=== PATIENT | female | born 1995 | race Two or more races ===

== ENCOUNTER 2018-08-10 09:19 | Emergency (ER) | payer BC ==
[~2018-08-10] VITALS: Ht 152.4 cm; Wt 47.6 kg
[2018-08-10 09:29] VITALS: BP 115/76
--- NOTE | 2018-08-10 09:31 | NUR ---
ED Nurse Note:pt. came with c/o bilateral pelvic pain after she had IUD placed before [place]
--- NOTE | 2018-08-10 10:21 | Emergency Room Report ---
History of Present Illness General Chief Complaint: Pain Source: Patient Present Illness HPI Patient presents with complaints of pelvic discomfort reports that about 1 month ago she had intrauterine device placed this was put in while she was having her menstrual cycle Currently she feels that she is starting her menstrual cycle patient had some different sensation such as body aches and low-grade fevers off and on for the past 1 month Off and on lower abdominal cramping Patient initially thought that she might have the flu as she had just recently come back from [place] and had traveled Denies any chest pain denies any vomiting or diarrhea Patient reports that she was concerned about sepsis otherwise denies any dysuria denies any vaginal discharge Cramping also is fairly suprapubic and lower abdomen midline Allergies: Uncoded Allergies: NUTS (Allergy, Unknown, 08/10/18) Patient History Past Medical History: see triage record Pertinent Family History: none Last Menstrual Period: 08/08/18 Reviewed Nursing Documentation: PMH: Agreed; PSxH: Agreed Nursing Documentation-PMH Past Medical History: No Stated History Review of Systems All Other Systems: negative except mentioned in HPI Physical Exam Vital Signs Date Time Temp Pulse Resp B/P (MAP) Pulse Ox O2 Delivery O2 Flow Rate FiO2 08/10/18 09:21 98.8 94 18 115/76 96 Room Air Sp02 EP Interpretation: reviewed, normal General Appearance: well appearing, no apparent distress Head: normocephalic, atraumatic Eyes: bilateral eye PERRL, bilateral eye EOMI ENT: hearing grossly normal, normal pharynx, TMs + canals normal, uvula midline Neck: full range of motion, supple, no meningismus, no bony tend Respiratory: lungs clear, normal breath sounds, no rhonchi, no respiratory distress, no retraction, no accessory muscle use Cardiovascular #1: normal peripheral pulses, regular rate, rhythm, no edema, no gallop, no JVD, no murmur Gastrointestinal: normal bowel sounds, non tender, soft, no mass, no organomegaly, non-distended, no guarding, no hernia, no pulsatile mass, no rebound Genitourinary: no CVA tenderness Musculoskeletal: normal inspection Neurologic: oriented x3, responsive, forensic anthropologist III-XII nml as tested, motor strength/ tone normal, sensory intact Psychiatric: mood/affect normal Skin: normal color, no rash, warm/dry, palpation normal Lymphatic: normal inspection, no adenopathy Medical Decision Making Diagnostic Impression: Primary Impression: UTI (urinary tract infection) ER Course With the patient's history and examination, multiple differentials considered, including but not limited to , ectopic , ovarian torsion, gastritis, cholecystitis, pancreatitis, appendicitis Patient has a fairly soft and benign abdominal exam urine sample shows small leukocytes and questionable UTI given the patient's discomfort patient is treated symptomatically also recommended to follow closely With her facility that placed the intrauterine device for further reevaluation and possible removal as needed Labs Test 08/10/18 10:25 Urine Color Yellow Urine Appearance Slightly cloudy Urine pH 6 (4.5-8.0) Urine Specific [place] 1.015 (1.005-1.035) Urine Protein 3+ (NEGATIVE) Urine Glucose (UA) Negative (NEGATIVE) Urine Ketones 1+ (NEGATIVE) Urine Blood 5+ (NEGATIVE) Urine Nitrite Negative (NEGATIVE) Urine Bilirubin Negative (NEGATIVE) Urine Urobilinogen Normal MG/DL (0.0-1.0) Urine Leukocyte Esterase 2+ (NEGATIVE) Urine RBC 10-15 /HPF (0 - 2) Urine WBC 2-4 /HPF (0 - 2) Urine Squamous Epithelial Cells Few /LPF (NONE/OCC) Urine Bacteria Few /HPF (NONE) Urine Mucus Few /LPF (NONE/OCC) Urine HCG, Qualitative Negative (NEGATIVE) Last Vital Signs Date Time Temp Pulse Resp B/P (MAP) Pulse Ox O2 Delivery O2 Flow Rate FiO2 08/10/18 09:29 98.8 64 18 115/76 96 Room Air Status: improved Disposition: HOME, SELF-CARE Condition: Improved Scripts Cephalexin* (KEFLEX*) 500 Mg Capsule 500 MG ORAL EVERY 8 HOURS for 7 Days, #21 CAP Prov: Izzy Perez DO 08/10/18 Referrals: NOT CHOSEN IPA/MD,REFERRING (PCP) Additional Instructions: Patient is provided with the discharge instructions notified to follow up with primary doctor in the next 2-3 days otherwise return to the er with any worsening symptoms. Please note that this report is being documented using [employer] technology. This can lead to erroneous entry secondary to incorrect interpretation by the dictating instrument. Izzy Perez DO Aug 10, 2018 10:21
--- NOTE | 2018-08-10 10:32 | NUR ---
ED Nurse Note:urine sent to labs
[2018-08-10 10:33] LABS: APPEARANCE,URINE SLIGHTLY CLOUDY; BILIRUBIN, URINE NEGATIVE (NEGATIVE); GLUCOSE, URINE (UA) NEGATIVE (NEGATIVE); KETONES,URINE 1+ (NEGATIVE); LEUKOCYTE ESTERASE ,URINE 2+ (NEGATIVE); NITRITE,URINE NEGATIVE (NEGATIVE); PH,URINE 6 (4.5-8.0); PROTEIN,URINE 3+ (NEGATIVE); UROBILINOGEN,URINE NORMAL MG/DL (0.0-1.0)
[2018-08-10 10:42] LABS: COLOR,URINE YELLOW
[2018-08-10] MEDS ORDERED: CEPHALEXIN500 MG ORAL (11:32)
[2018-08-10 11:38] VITALS: BP 115/76
--- NOTE | 2018-08-10 11:43 | NUR ---
ED Nurse Note: Pt is DC per ERMD order. pt is alert and oriented times 4. pt vital signs, status and condition are within normal limits. pt has left with all belongings including DC notes and prescription. pt is able to understand DC notes and prescriptions. pt is instructed to follow up with primary provider as soon as possible. pt is stable for discharge. pt is instructed to return as soon as possible to ER if any reoccurance of symptoms. all pt status, vital signs, and condition is reported to ERMD prior to DC. pt is able to ambulate with steady gait. PT ID is DC.
== END 2018-08-10 11:38 | disposition home or self-care (01) ==
LOC: EMR 09:50
DX: N39.0 Urinary tract infection, site not specified (principal)
CPT/HCPCS: 81003; 81025; 99283